=== PATIENT | female | born 1975 | race Caucasian/White ===

== ENCOUNTER 2020-08-03 14:33 | Inpatient (IN) | payer OTHER ==
[2020-08-03] MEDS ORDERED: SODIUM CHLORIDE 1,000 ML IV STA ×2 (15:45→18:49)
[2020-08-03] MEDS ORDERED: ONDANSETRON 4 MG/2 ML VIAL IVPUSH ONE (15:45)
[2020-08-03] MEDS ORDERED: FAMOTIDINE 20 MG/50 ML IVPB 20 MG/50 ML MG IVPB ONE ×2 (16:22→18:00)
[2020-08-03] MEDS ORDERED: ONDANSETRON 4 MG/2 ML VIAL ONE (18:00)
[2020-08-03 18:24] LABS: BASO % 0.8 % (0-2.0); EOS % 0.1 % (0-4.5); HEMOGLOBIN 10.2 GM/dL (10.7-15.3); MCH 32.5 pg (25.7-33.7); MCHC 31.9 g/dl (32.0-36.0); MEAN PLT VOLUME 10.5 fl (7.5-11.1); MONO % 5.3 % (3.8-10.2); NEUT % 82.8 % (42.8-82.8); PLATELET COUNT 198 K/MM3 (134-434); RBC 3.14 M/mm3 (3.60-5.2); RDW 14.8 % (11.6-15.6); WHITE BLOOD COUNT 17.8 K/mm3 (4.0-10.0)
[2020-08-03 18:30] LABS: EPI CELLS >36 /uL (0-25.1); HYALINE CASTS 9 /uL (0-3.1); PH,URINE 5.5 (5.0-8.0); URINE APPEARANCE CLOUDY; URINE BACTERIA >9,000 /uL (0-1359); URINE BILIRUBIN 2+ (NEGATIVE); URINE COLOR ORANGE; URINE GLUCOSE (UA) NEGATIVE (NEGATIVE); URINE KETONE TRACE (NEGATIVE); URINE LEUK ESTERASE 1+ (NEGATIVE); URINE NITRITE POSITIVE (NEGATIVE); URINE PROTEIN 2+ (NEGATIVE); URINE RBC 1747 /uL (0-23.9); URINE WBC 331 /uL (0-25.8)
[2020-08-03 18:32] LABS: POTASSIUM 3.6 mmol/L (3.5-5.1)
[2020-08-03 18:34] LABS: CALCIUM 8.6 mg/dL (8.5-10.1)
[2020-08-03 18:35] LABS: ALBUMIN 2.9 g/dl (3.4-5.0); BLOOD UREA NITROGEN 6.3 mg/dL (7-18)
[2020-08-03 18:38] LABS: CREATININE 0.7 mg/dL (0.55-1.3)
[2020-08-03 18:39] LABS: BILIRUBIN,TOTAL 2.6 mg/dL (0.2-1); TOT PROT 8.5 g/dl (6.4-8.2)
[2020-08-03] MEDS ORDERED: CEFTRIAXONE 1 GM in DEXTROSE 5%-WATER - 50 ML IVPB ONE (18:53)
[2020-08-03] MEDS ORDERED: CEFTRIAXONE 1 GM/50 ML BAG ONE (20:03)
[2020-08-03] MEDS ORDERED: FOLIC ACID 5 MG/1 ML SQ ONE (22:27)
[2020-08-03] MEDS ORDERED: LORazepam 1 MG TABLET PO PRN (22:29)
[2020-08-03 23:37] LABS: INR 1.77 (0.83-1.09); PROTHROMBIN TIME (PATIENT) 21.4 SEC (9.7-13.0)
[2020-08-03] MEDS ORDERED: LORazepam 1 MG TABLET ONE (23:46)
[2020-08-03] MEDS: LORazepam 2 MG TABLET PO SCH (23:52)
[2020-08-04] MEDS: ALBUMIN HUMAN 25% 100 ML VIAL IVPB SCH ×4 (01:12→18:42)
[2020-08-04] MEDS ORDERED: LORazepam 1 MG TABLET ONE ×2 (05:26→10:41)
[2020-08-04] MEDS: LORazepam 2 MG TABLET PO SCH ×3 (05:33→17:14)
[2020-08-04] MEDS ORDERED: PANTOPRAZOLE 40 MG TABLET ONE (08:03)
[2020-08-04] MEDS ORDERED: predniSONE 20 MG TABLET (UD) ONE (08:03)
[2020-08-04] MEDS ORDERED: CEFTRIAXONE 2 GM/100 ML BAG IVPB ONE (08:04)
[2020-08-04] MEDS ORDERED: ENOXAPARIN NA (PORCINE) 40 MG/0.4 ML DISP.SYRIN SQ ONE (08:04)
[2020-08-04 08:46] LABS: BASO % 2.3 % (0-2.0); EOS % 0.7 % (0-4.5); HEMATOCRIT 24.6 % (32.4-45.2); HEMOGLOBIN 8.2 GM/dL (10.7-15.3); LYMPH % 29.5 % (8-40); MCH 33.5 pg (25.7-33.7); MCHC 33.1 g/dl (32.0-36.0); MEAN CELL VOLUME 101.3 fl (80-96); MEAN PLT VOLUME 9.2 fl (7.5-11.1); MONO % 5.9 % (3.8-10.2); NEUT % 61.6 % (42.8-82.8); PLATELET COUNT 99 K/MM3 (134-434); RBC 2.43 M/mm3 (3.60-5.2); RDW 14.8 % (11.6-15.6); WHITE BLOOD COUNT 6.4 K/mm3 (4.0-10.0)
[2020-08-04] MEDS: PANTOPRAZOLE 40 MG TABLET PO SCH (09:01)
[2020-08-04] MEDS: predniSONE 20 MG TABLET (UD) PO SCH (09:01)
[2020-08-04] MEDS: CEFTRIAXONE 2 GM in DEXTROSE 5%-WATER 2 GM/100 ML BAG IVPB SCH (09:01)
[2020-08-04] MEDS: ENOXAPARIN NA (PORCINE) 40 MG/0.4 ML DISP.SYRIN SQ SCH (09:01)
[2020-08-04 09:06] LABS: POTASSIUM 3.2 mmol/L (3.5-5.1)
[2020-08-04 09:09] LABS: ALBUMIN 3.2 g/dl (3.4-5.0)
[2020-08-04 09:10] LABS: MAGNESIUM 1.5 mg/dL (1.8-2.4)
[2020-08-04 09:13] LABS: CREATININE 0.6 mg/dL (0.55-1.3); PHOSPHOROUS 2.4 mg/dL (2.5-4.9)
[2020-08-04 09:14] LABS: BILIRUBIN,TOTAL 2.2 mg/dL (0.2-1); TOT PROT 6.8 g/dl (6.4-8.2)
[2020-08-04] MEDS: NICOTINE 7 MG/24 HOURS TOPICAL PATCH TD SCH (10:33)
[2020-08-04] MEDS ORDERED: POTASSIUM CHLORIDE TABS 20 MEQ TABLET.ER (FP) PO ONE ×2 (10:45→11:27)
[2020-08-04] MEDS ORDERED: KCL 10 MEQ IVPB 10 MEQ/100 ML INFUS.BAG IVPB ONE (11:28)
[2020-08-04] MEDS: KCL 10 MEQ IVPB 10 MEQ/100 ML INFUS.BAG IVPB SCH ×3 (12:38→16:12)
[2020-08-04] MEDS ORDERED: FLU VACCINE (FLULAVAL) PF 60 MCG/0.5 ML SYRINGE 2020-2021 IM ONE (15:43)
[2020-08-04] MEDS: LORazepam 1 MG TABLET PO SCH ×2 (18:41→23:14)
[2020-08-05] MEDS: LORazepam 1 MG TABLET PO SCH ×2 (05:16→12:54)
[2020-08-05 07:27] LABS: MCH 33.4 pg (25.7-33.7); MCHC 33.3 g/dl (32.0-36.0); MEAN CELL VOLUME 100.4 fl (80-96); MEAN PLT VOLUME 9.6 fl (7.5-11.1); PLATELET COUNT 108 K/MM3 (134-434); RBC 2.39 M/mm3 (3.60-5.2); RDW 14.6 % (11.6-15.6); WHITE BLOOD COUNT 10.9 K/mm3 (4.0-10.0)
[2020-08-05 07:40] LABS: INR 1.84 (0.83-1.09); PROTHROMBIN TIME (PATIENT) 21.9 SEC (9.7-13.0)
[2020-08-05 07:54] LABS: POTASSIUM 3.4 mmol/L (3.5-5.1)
[2020-08-05 07:57] LABS: ALBUMIN 4.2 g/dl (3.4-5.0); BLOOD UREA NITROGEN 4.2 mg/dL (7-18)
[2020-08-05 07:59] LABS: BILIRUBIN,DIRECT 1.1 mg/dL (0.0-0.2)
[2020-08-05 08:00] LABS: CREATININE 0.6 mg/dL (0.55-1.3); PHOSPHOROUS 2.1 mg/dL (2.5-4.9)
[2020-08-05 08:01] LABS: BILIRUBIN,TOTAL 2.3 mg/dL (0.2-1); TOT PROT 7.3 g/dl (6.4-8.2)
[2020-08-05] MEDS ORDERED: DEXTROSE 5%-WATER 100 ML IVPB ONE (09:18)
[2020-08-05] MEDS: predniSONE 20 MG TABLET (UD) PO SCH (09:36)
[2020-08-05] MEDS: PANTOPRAZOLE 40 MG TABLET PO SCH (09:36)
[2020-08-05] MEDS: SPIRONOLACTONE 25 MG TABLET PO SCH (09:36)
[2020-08-05] MEDS: NICOTINE 7 MG/24 HOURS TOPICAL PATCH TD SCH (09:38)
[2020-08-05] MEDS: CEFTRIAXONE 2 GM in DEXTROSE 5%-WATER 2 GM/100 ML BAG IVPB SCH (09:38)
[2020-08-05] MEDS: ENOXAPARIN NA (PORCINE) 40 MG/0.4 ML DISP.SYRIN SQ SCH (09:38)
[2020-08-05] MEDS ORDERED: LORazepam 0.5 MG TABLET PO PRN (16:14)
[2020-08-05 17:59] VITALS: BMI 21.5
[2020-08-05 21:06] LABS: HEP B CORE AB, TOT Negative (Negative)
[2020-08-06] MEDS ORDERED: LORazepam 0.5 MG TABLET PO PRN
[2020-08-06] MEDS ORDERED: LORazepam 0.5 MG TABLET PO SCH (05:00)
[2020-08-06 08:08] LABS: INR 1.56 (0.83-1.09); PROTHROMBIN TIME (PATIENT) 18.9 SEC (9.7-13.0)
[2020-08-06 08:21] LABS: POTASSIUM 3.4 mmol/L (3.5-5.1)
[2020-08-06 08:22] LABS: BASO % 0.3 % (0-2.0); EOS % 0.1 % (0-4.5); HEMOGLOBIN 8.8 GM/dL (10.7-15.3); LYMPH % 15.3 % (8-40); MCH 33.1 pg (25.7-33.7); MCHC 32.8 g/dl (32.0-36.0); MEAN CELL VOLUME 100.8 fl (80-96); MEAN PLT VOLUME 10.2 fl (7.5-11.1); MONO % 4.8 % (3.8-10.2); NEUT % 79.5 % (42.8-82.8); PLATELET COUNT 79 K/MM3 (134-434); RBC 2.68 M/mm3 (3.60-5.2); RDW 14.7 % (11.6-15.6); WHITE BLOOD COUNT 14.4 K/mm3 (4.0-10.0)
[2020-08-06] MEDS ORDERED: POTASSIUM CHLORIDE TABS 20 MEQ TABLET.ER (FP) PO ONE (08:27)
[2020-08-06 08:30] LABS: ALBUMIN 4.1 g/dl (3.4-5.0); CALCIUM 9.2 mg/dL (8.5-10.1)
[2020-08-06 08:31] LABS: MAGNESIUM 1.6 mg/dL (1.8-2.4)
[2020-08-06 08:34] LABS: PHOSPHOROUS 2.6 mg/dL (2.5-4.9)
[2020-08-06 08:35] LABS: BILIRUBIN,TOTAL 1.9 mg/dL (0.2-1); CREATININE 0.6 mg/dL (0.55-1.3); TOT PROT 7.7 g/dl (6.4-8.2)
[2020-08-06] MEDS ORDERED: DEXTROSE 5%-WATER 100 ML IVPB ONE (09:26)
[2020-08-06] MEDS: PANTOPRAZOLE 40 MG TABLET PO SCH (12:05)
[2020-08-06] MEDS: SPIRONOLACTONE 25 MG TABLET PO SCH (12:05)
[2020-08-06] MEDS: predniSONE 20 MG TABLET (UD) PO SCH (12:06)
[2020-08-06] MEDS: CEFTRIAXONE 2 GM in DEXTROSE 5%-WATER 2 GM/100 ML BAG IVPB SCH (12:06)
[2020-08-06] MEDS: NICOTINE 7 MG/24 HOURS TOPICAL PATCH TD SCH (12:06)
[2020-08-06] MEDS ORDERED: MAGNESIUM SULF 50% (8.12 MEQ/2 ML-1 GM VIAL) IVPB ONE (12:33)
[2020-08-06 19:41] LABS: BF WBC & OTHER NUCLEATED CELLS 326 /mm3
[2020-08-07] MEDS ORDERED: LORazepam 0.5 MG TABLET PO ONE (05:00)
[2020-08-07] MEDS: LEVOTHYROXINE NA 75 MCG TABLET (FP) PO SCH (06:06)
[2020-08-07 07:52] LABS: BASO % 0.1 % (0-2.0); HEMATOCRIT 26.4 % (32.4-45.2); HEMOGLOBIN 8.7 GM/dL (10.7-15.3); LYMPH % 13.1 % (8-40); MCHC 33.1 g/dl (32.0-36.0); MEAN CELL VOLUME 99.9 fl (80-96); MEAN PLT VOLUME 9.9 fl (7.5-11.1); MONO % 4.9 % (3.8-10.2); NEUT % 81.9 % (42.8-82.8); PLATELET COUNT 119 K/MM3 (134-434); RBC 2.64 M/mm3 (3.60-5.2); RDW 14.5 % (11.6-15.6); WHITE BLOOD COUNT 11.1 K/mm3 (4.0-10.0)
[2020-08-07 07:56] LABS: INR 1.65 (0.83-1.09); PROTHROMBIN TIME (PATIENT) 19.7 SEC (9.7-13.0)
[2020-08-07 08:06] LABS: POTASSIUM 3.9 mmol/L (3.5-5.1)
[2020-08-07 08:19] LABS: ALBUMIN 3.6 g/dl (3.4-5.0); BLOOD UREA NITROGEN 7.8 mg/dL (7-18); CALCIUM 8.6 mg/dL (8.5-10.1); MAGNESIUM 1.8 mg/dL (1.8-2.4)
[2020-08-07 08:20] LABS: BILIRUBIN,TOTAL 1.4 mg/dL (0.2-1); TOT PROT 7.1 g/dl (6.4-8.2)
[2020-08-07 08:21] LABS: CREATININE 0.7 mg/dL (0.55-1.3)
[2020-08-07 08:22] LABS: PHOSPHOROUS 2.5 mg/dL (2.5-4.9)
[2020-08-07] MEDS ORDERED: DEXTROSE 5%-WATER 100 ML IVPB ONE (09:33)
[2020-08-07] MEDS: CEFTRIAXONE 2 GM in DEXTROSE 5%-WATER 2 GM/100 ML BAG IVPB SCH (09:52)
[2020-08-07] MEDS: NICOTINE 7 MG/24 HOURS TOPICAL PATCH TD SCH (09:53)
[2020-08-07] MEDS: SPIRONOLACTONE 25 MG TABLET PO SCH (09:53)
[2020-08-07] MEDS ORDERED: ONDANSETRON 4 MG/2 ML VIAL IVPUSH PRN (10:08)
[2020-08-07 10:54] LABS: BODY FLUID MACROPHAGES 80 %
[2020-08-07] MEDS: FUROSEMIDE 20 MG TABLET (FP) PO SCH (18:46)
[2020-08-08] MEDS ORDERED: ASPIRIN 81 MG CHEWABLE TABLETS PO ONE (00:15)
[2020-08-08] MEDS: LEVOTHYROXINE NA 75 MCG TABLET (FP) PO SCH (06:10)
[2020-08-08 08:20] LABS: BASO % 0.8 % (0-2.0); EOS % 2.6 % (0-4.5); HEMATOCRIT 25.3 % (32.4-45.2); HEMOGLOBIN 8.5 GM/dL (10.7-15.3); LYMPH % 24.2 % (8-40); MCH 33.4 pg (25.7-33.7); MCHC 33.7 g/dl (32.0-36.0); MEAN CELL VOLUME 99.1 fl (80-96); MEAN PLT VOLUME 10.1 fl (7.5-11.1); MONO % 6.2 % (3.8-10.2); NEUT % 66.2 % (42.8-82.8); PLATELET COUNT 96 K/MM3 (134-434); RBC 2.55 M/mm3 (3.60-5.2); RDW 14.6 % (11.6-15.6); WHITE BLOOD COUNT 7.6 K/mm3 (4.0-10.0)
[2020-08-08 08:28] LABS: POTASSIUM 3.2 mmol/L (3.5-5.1)
[2020-08-08 08:43] LABS: CALCIUM 8.1 mg/dL (8.5-10.1)
[2020-08-08 08:44] LABS: ALBUMIN 3.4 g/dl (3.4-5.0); BLOOD UREA NITROGEN 6.3 mg/dL (7-18); MAGNESIUM 1.3 mg/dL (1.8-2.4)
[2020-08-08 08:47] LABS: CREATININE 0.7 mg/dL (0.55-1.3); PHOSPHOROUS 2.5 mg/dL (2.5-4.9)
[2020-08-08 08:48] LABS: BILIRUBIN,TOTAL 1.4 mg/dL (0.2-1); TOT PROT 6.7 g/dl (6.4-8.2)
[2020-08-08] MEDS ORDERED: DEXTROSE 5%-WATER 100 ML IVPB ONE (10:14)
[2020-08-08] MEDS: CEFTRIAXONE 2 GM in DEXTROSE 5%-WATER 2 GM/100 ML BAG IVPB SCH (10:24)
[2020-08-08] MEDS: NICOTINE 7 MG/24 HOURS TOPICAL PATCH TD SCH (10:24)
[2020-08-08] MEDS: SPIRONOLACTONE 25 MG TABLET PO SCH (10:24)
[2020-08-08] MEDS: FUROSEMIDE 20 MG TABLET (FP) PO SCH (10:24)
[2020-08-08 12:08] LABS: BODY FLUID ALBUMIN 1.1 g/dL (Not Estab.)
[2020-08-08] MEDS ORDERED: POTASSIUM CHLORIDE TABS 20 MEQ TABLET.ER (FP) PO ONE (15:02)
[2020-08-08] MEDS ORDERED: MAGNESIUM SULF 50% (8.12 MEQ/2 ML-1 GM VIAL) IVPB ONE (15:03)
[2020-08-08 15:37] VITALS: BP 95/69; PULSE 103; TEMP 98.2
== END 2020-08-08 18:40 | disposition home or self-care (01) | DRG 264 ==
LOC: JER 14:33 → JERBED 19:35 → J7W 08-04 15:11
PROVIDERS: ADMIT Internal Medicine; ATTEND Internal Medicine
PROC: 0W9G3ZX Drainage of Peritoneal Cavity, Percutaneous Approach, Diagnostic (ICD-10-PCS; principal; 2020-08-06)
DX: K70.31 Alcoholic cirrhosis of liver with ascites (principal); D69.6 Thrombocytopenia, unspecified; E83.42 Hypomagnesemia; E88.09 Other disorders of plasma-protein metabolism, not elsewhere classified; E83.39 Other disorders of phosphorus metabolism; K72.90 Hepatic failure, unspecified without coma; E87.6 Hypokalemia; N39.0 Urinary tract infection, site not specified; D64.9 Anemia, unspecified; F10.10 Alcohol abuse, uncomplicated; F17.210 Nicotine dependence, cigarettes, uncomplicated; B96.20 Unspecified Escherichia coli [E. coli] as the cause of diseases classified elsewhere; E03.9 Hypothyroidism, unspecified
CPT/HCPCS: 36415; 71045-TC-FY; 74183-TC; 76700-TC; 76942-TC; 80053; 81003; 82042; 82105; 82150; 82248; 82465; 82945; 83615; 83690; 83735; 83986; 84100; 84157; 84443; 84478; 85025; 85027; 85610; 86704; 86706; 86707; 86708; 86709; 87040; 87070; 87075; 87086; 87102; 87116; 87186; 87205; 87206; 87210; 87340; 87522; 88108; 88305-TC; 93005; 93010; 99285-25; A9579; C9803; G0008; Q2036; U0003

== ENCOUNTER 2021-03-22 21:44 | Emergency (ER) | payer OTHER ==
[2021-03-22 22:05] VITALS: BP 92/48; PULSE 114; TEMP 99.1; BMI 19.3
[2021-03-22] MEDS ORDERED: PANTOPRAZOLE SODIUM 40 MG VIAL IVPUSH ONE (22:11)
[2021-03-22] MEDS ORDERED: SODIUM CHLORIDE 1,000 ML IV STA ×2 (22:11→23:35)
[2021-03-22] MEDS ORDERED: ONDANSETRON 4 MG/2 ML VIAL IVPUSH ONE (22:14)
[2021-03-22] MEDS ORDERED: OCTREOTIDE ACETATE 200 MCG, OCTREOTIDE ACETATE 1,000 MCG in DEXTROSE 5%-WATER - 496 ML IVPB SCH (22:15)
[2021-03-22] MEDS ORDERED: PANTOPRAZOLE SODIUM 80 MG in SODIUM CHLORIDE 100 ML IVPB SCH (22:15)
[2021-03-22] MEDS ORDERED: ONDANSETRON 4 MG/2 ML VIAL ONE (22:17)
[2021-03-22] MEDS ORDERED: PANTOPRAZOLE SODIUM 40 MG VIAL ONE (22:18)
[2021-03-22 23:17] LABS: BLOOD UREA NITROGEN 47.3 mg/dL (7-18); CALCIUM 7.2 mg/dL (8.5-10.1); CREATININE 1.3 mg/dL (0.55-1.3)
[2021-03-22 23:17] LABS: BASO % 0.2 % (0-2.0); HEMATOCRIT 15.9 % (32.4-45.2); INR 1.78 (0.83-1.09); LYMPH % 8.6 % (8-40); MCH 31.6 pg (25.7-33.7); MCHC 32.6 g/dl (32.0-36.0); MEAN CELL VOLUME 96.8 fl (80-96); MEAN PLT VOLUME 9.2 fl (7.5-11.1); NEUT % 86.2 % (42.8-82.8); PLATELET COUNT 145 10^3/uL (134-434); PROTHROMBIN TIME (PATIENT) 21.5 SEC (9.7-13.0); RBC 1.64 M/mm3 (3.60-5.2); RDW 14.2 % (11.6-15.6); WHITE BLOOD COUNT 24.4 K/mm3 (4.0-10.0)
[2021-03-22 23:18] LABS: BILIRUBIN,TOTAL 1.4 mg/dL (0.2-1); TOT PROT 5.3 g/dl (6.4-8.2)
[2021-03-22 23:26] LABS: HEMOGLOBIN 5.2 GM/dL (10.7-15.3)
[2021-03-22] MEDS ORDERED: PIPERACILLIN/TAZOB 3.375 GM 3.375 GM in DEXTROSE 5%-WATER - 50 ML IVPB ONE (23:38)
[2021-03-23] MEDS ORDERED: RAPID SEQUENCE INTUBATION KIT NR ONE (00:39)
[2021-03-23] MEDS ORDERED: SUCCINYLCHOLINE CHLORIDE 200 MG/10 ML VIAL IVPUSH ONE (00:49)
[2021-03-23] MEDS ORDERED: ETOMIDATE 20 MG/10 ML AMPUL IVPUSH ONE (00:49)
[2021-03-23] MEDS ORDERED: FENTANYL IVPB 500 MCG/100 ML BAG IVPB SCH (00:52)
[2021-03-23] MEDS ORDERED: MIDAZOLAM HCL 5 MG/1 ML Single Dose Vial IVPUSH ONE (01:01)
[2021-03-23] MEDS ORDERED: MIDAZOLAM HCL 2 MG/2 ML SINGLE DOSE VIAL ONE (01:03)
[2021-03-23] MEDS ORDERED: MIDAZOLAM IN 0.9 % SOD.CHLORID 100 MG/100 ML PLAST..BAG IVPB SCH ×2 (01:15→01:31)
[2021-03-23] MEDS ORDERED: ROCURONIUM BROMIDE 50 MG/5 ML VIAL IV ONE ×2 (01:19→02:41)
[2021-03-23] MEDS ORDERED: MIDAZOLAM IN 0.9 % SOD.CHLORID 1 MG/1 ML PLAST..BAG ONE (01:22)
[2021-03-23] MEDS ORDERED: ROCURONIUM BROMIDE 100 MG/10 ML VIAL ONE (02:39)
[2021-03-23 02:54] LABS: ANISOCYTOSIS 1+; MACROCYTOSIS 1+; OVALOCYTE 1+; PLATELET ESTIMATE DECREASED
== END 2021-03-23 03:00 | disposition short-term general hospital (02) ==
LOC: JER 21:44
PROC: 3E033GC Introduction of Other Therapeutic Substance into Peripheral Vein, Percutaneous Approach (ICD-10-PCS; principal; 2021-03-22)
DX: I85.01 Esophageal varices with bleeding (principal); K70.30 Alcoholic cirrhosis of liver without ascites; F10.10 Alcohol abuse, uncomplicated
CPT/HCPCS: 36415; 36430; 36511; 71045-TC-FY; 80053; 82140; 83605; 83690; 84703; 85025; 85610; 86900; 86922; 93005; 93010; 99291; 99292; C9803; P9016; P9058; U0003; U0005

== ENCOUNTER 2022-01-25 08:09 | Emergency (ER) | payer OTHER ==
[2022-01-25 08:23] VITALS: BP 124/71; PULSE 82; TEMP 98.6; BMI 21.7
[2022-01-25] MEDS ORDERED: ACETAMINOPHEN 500 MG TABLET (FP) ONE (09:00)
[2022-01-25] MEDS ORDERED: ACETAMINOPHEN 500 MG TABLET (FP) PO ONE (09:00)
== END 2022-01-25 09:09 | disposition home or self-care (01) ==
LOC: JERFT 08:09
DX: T16.1XXA Foreign body in right ear, initial encounter (principal)
CPT/HCPCS: 99283-25

== ENCOUNTER 2022-03-02 19:33 | Inpatient (IN) | payer OTHER ==
[2022-03-02] MEDS ORDERED: FOLIC ACID 1 MG TABLET (FP) PO ONE (20:48)
[2022-03-02] MEDS ORDERED: SODIUM CHLORIDE 0.9% 500 ML INFUS.BAG IV ONE ×2 (20:48→22:46)
[2022-03-02] MEDS ORDERED: THIAMINE HCL 100 MG TABLET (FP) PO ONE (20:48)
[2022-03-02] MEDS ORDERED: FOLIC ACID 1 MG TABLET (FP) ONE (21:31)
[2022-03-02] MEDS ORDERED: THIAMINE HCL 100 MG TABLET (FP) ONE (21:31)
[2022-03-02 21:46] LABS: BASO % 1.3 % (0-2.0); EOS % 1.5 % (0-4.5); HEMOGLOBIN 11.4 GM/dL (10.7-15.3); LYMPH % 22.6 % (8-40); MCH 30.7 pg (25.7-33.7); MCHC 33.6 g/dl (32.0-36.0); MEAN CELL VOLUME 91.5 fl (80-96); MEAN PLT VOLUME 9.1 fl (7.5-11.1); MONO % 15.4 % (3.8-10.2); NEUT % 59.2 % (42.8-82.8); PLATELET COUNT 121 10^3/uL (134-434); RBC 3.72 M/mm3 (3.60-5.2); RDW 14.3 % (11.6-15.6); WHITE BLOOD COUNT 10.7 K/mm3 (4.0-10.0)
[2022-03-02 21:54] LABS: INR 1.36 (0.83-1.09); PROTHROMBIN TIME (PATIENT) 15.7 SEC (9.7-13.0)
[2022-03-02 22:03] LABS: CALCIUM 8.6 mg/dL (8.5-10.1)
[2022-03-02 22:04] LABS: ALBUMIN 3.7 g/dl (3.4-5.0); BLOOD UREA NITROGEN 24.5 mg/dL (7-18)
[2022-03-02 22:06] LABS: BILIRUBIN,DIRECT 1.5 mg/dL (0.0-0.2)
[2022-03-02 22:07] LABS: CREATININE 1.9 mg/dL (0.55-1.3)
[2022-03-02 22:08] LABS: BILIRUBIN,TOTAL 2.7 mg/dL (0.2-1); TOT PROT 8.3 g/dl (6.4-8.2)
[2022-03-02] MEDS ORDERED: POTASSIUM CHLORIDE ORAL LIQUID 20 MEQ/15 ML PO ONE (22:47)
[2022-03-02 22:49] LABS: URINE APPEARANCE CLEAR; URINE BILIRUBIN NEGATIVE (NEGATIVE); URINE COLOR YELLOW; URINE GLUCOSE (UA) NEGATIVE (NEGATIVE); URINE KETONE NEGATIVE (NEGATIVE); URINE LEUK ESTERASE NEGATIVE (NEGATIVE); URINE NITRITE NEGATIVE (NEGATIVE); URINE PROTEIN NEGATIVE (NEGATIVE); URINE UROBILINOGEN 0.2 mg/dL (0.2-1.0)
[2022-03-02 22:50] LABS: URINE BARBITURATES NEGATIVE (NEGATIVE)
[2022-03-02 22:51] LABS: COCAINE, UR NEGATIVE (NEGATIVE); METHADONE, UR NEGATIVE (NEGATIVE); PHENCYCLIDINE,URINE NEGATIVE (NEGATIVE); URINE AMPHETAMINES NEGATIVE (NEGATIVE); URINE BENZODIAZEPINES NEGATIVE (NEGATIVE)
[2022-03-02 22:52] LABS: OPIATES, URI NEGATIVE (NEGATIVE)
[2022-03-02] MEDS ORDERED: KCL 10 MEQ IVPB 10 MEQ/100 ML INFUS.BAG IVPB SCH (23:00)
[2022-03-02] MEDS ORDERED: KCL 10 MEQ IVPB 10 MEQ/100 ML INFUS.BAG IVPB ONE (23:51)
[2022-03-02] MEDS ORDERED: POTASSIUM CHLORIDE ORAL LIQUID 20 MEQ/15 ML ONE (23:51)
[2022-03-03] MEDS ORDERED: chlordiazePOXIDE HCL 25 MG CAPSULE PO ONE (01:02)
[2022-03-03] MEDS ORDERED: chlordiazePOXIDE HCL 25 MG CAPSULE ONE (04:14)
[2022-03-03] MEDS ORDERED: HALOPERIDOL LACTATE 5 MG/ML IM ONE (04:48)
[2022-03-03] MEDS ORDERED: LORazepam 2 MG/ML SDV VIAL IVPUSH PRN (04:50)
[2022-03-03] MEDS ORDERED: HALOPERIDOL LACTATE 5 MG/ML ONE (04:55)
[2022-03-03] MEDS ORDERED: HEPARIN NA (PORCINE) 5,000 UNITS/ML 1ML VIAL ONE (05:02)
[2022-03-03] MEDS: HEPARIN NA (PORCINE) 5,000 UNITS/ML 1ML VIAL SQ SCH ×3 (05:03→22:17)
[2022-03-03 05:54] LABS: ALBUMIN 3.4 g/dl (3.4-5.0); BLOOD UREA NITROGEN 21.3 mg/dL (7-18)
[2022-03-03 05:57] LABS: CREATININE 1.6 mg/dL (0.55-1.3)
[2022-03-03 05:59] LABS: BILIRUBIN,TOTAL 2.5 mg/dL (0.2-1); TOT PROT 7.5 g/dl (6.4-8.2)
[2022-03-03 08:30] VITALS: BMI 20.5
[2022-03-03] MEDS ORDERED: THIAMINE HCL 100 MG TABLET (FP) PO SCH (10:00)
[2022-03-03] MEDS ORDERED: FOLIC ACID 1 MG TABLET (FP) PO SCH (10:00)
[2022-03-03 10:18] LABS: HEMATOCRIT 29.1 % (32.4-45.2); HEMOGLOBIN 9.6 GM/dL (10.7-15.3); MCH 30.6 pg (25.7-33.7); MCHC 33.1 g/dl (32.0-36.0); MEAN CELL VOLUME 92.6 fl (80-96); MEAN PLT VOLUME 9.1 fl (7.5-11.1); PLATELET COUNT 84 10^3/uL (134-434); RBC 3.14 M/mm3 (3.60-5.2); RDW 14.5 % (11.6-15.6)
[2022-03-03] MEDS ORDERED: LORazepam 1 MG TABLET PO PRN (10:24)
[2022-03-03 10:39] LABS: CHLORIDE 100 mmol/L (98-107); SODIUM 136 mmol/L (136-145)
[2022-03-03 10:43] LABS: MAGNESIUM 1.1 mg/dL (1.8-2.4)
[2022-03-03 10:46] LABS: CREATININE 1.5 mg/dL (0.55-1.3); SGPT/ALT 34 U/L (13-61)
[2022-03-03 10:47] LABS: SGOT/AST 106 U/L (15-37)
[2022-03-03 10:48] LABS: TOT PROT 6.9 g/dl (6.4-8.2)
[2022-03-03 10:54] LABS: ALBUMIN 3.1 g/dl (3.4-5.0); ALK PHOS 77 U/L (45-117); ANION GAP 9 MMOL/L (8-16); BILIRUBIN,TOTAL 3.2 mg/dL (0.2-1); BLOOD UREA NITROGEN 19.5 mg/dL (7-18); CO2 27 mmol/L (21-32); GLUCOSE,RANDOM 88 mg/dL (74-106); PHOSPHOROUS 2.1 mg/dL (2.5-4.9)
[2022-03-03] MEDS ORDERED: POTASSIUM CHLORIDE TABS 20 MEQ TABLET.ER (FP) PO ONE (11:15)
[2022-03-03] MEDS ORDERED: MAGNESIUM 2GM/50ML STERILE WATER IVPB IVPB ONE ×2 (11:30→20:00)
[2022-03-03] MEDS: LORazepam 1 MG TABLET PO SCH ×3 (11:30→23:30)
[2022-03-03] MEDS ORDERED: SODIUM CHLORIDE 1,000 ML IV SCH (11:45)
[2022-03-03] MEDS: KCL 10 MEQ IVPB 10 MEQ/100 ML INFUS.BAG IVPB SCH ×3 (12:40→17:08)
[2022-03-03] MEDS ORDERED: LACTULOSE 20 GM/30 ML UDC (FOR ORAL USE ONLY) PO SCH ×2 (14:00→22:00)
[2022-03-03] MEDS ORDERED: POTASSIUM PHOSPHATE 30 MM in SODIUM CHLORIDE 500 ML IVPB ONE (14:30)
[2022-03-03] MEDS ORDERED: POTASSIUM CHLORIDE 40 MEQ in SODIUM CHLORIDE 1,000 ML IV SCH (15:00)
[2022-03-03 15:15] LABS: IRON SERUM 84 ug/dL (50-175); TOTAL IRON BINDING CAPACITY 220 ug/dL (250-450)
[2022-03-03 15:24] LABS: RETICULOCYTES 2.59 % (0.5-1.5)
[2022-03-03 16:11] LABS: LDH 238 U/L (84-246)
[2022-03-03] MEDS ORDERED: KCL 10 MEQ IVPB 10 MEQ/100 ML INFUS.BAG IVPB SCH (17:00)
[2022-03-03] MEDS ORDERED: risperiDONE 1 MG TABLET PO SCH (22:00)
[2022-03-04] MEDS: HEPARIN NA (PORCINE) 5,000 UNITS/ML 1ML VIAL SQ SCH ×3 (05:50→22:00)
[2022-03-04] MEDS: LORazepam 1 MG TABLET PO SCH ×4 (05:50→22:01)
[2022-03-04 07:57] LABS: BASO % 1.7 % (0-2.0); EOS % 2.8 % (0-4.5); HEMATOCRIT 30.3 % (32.4-45.2); HEMOGLOBIN 9.9 GM/dL (10.7-15.3); LYMPH % 27.9 % (8-40); MCH 30.9 pg (25.7-33.7); MCHC 32.5 g/dl (32.0-36.0); MEAN PLT VOLUME 9.6 fl (7.5-11.1); MONO % 13.9 % (3.8-10.2); NEUT % 53.7 % (42.8-82.8); PLATELET COUNT 89 10^3/uL (134-434); RBC 3.19 M/mm3 (3.60-5.2); RDW 14.9 % (11.6-15.6); WHITE BLOOD COUNT 5.2 K/mm3 (4.0-10.0)
[2022-03-04] MEDS ORDERED: LORazepam 2 MG/ML SDV VIAL IVPUSH PRN (08:01)
[2022-03-04] MEDS ORDERED: LORazepam 1 MG TABLET PO PRN (08:01)
[2022-03-04 08:14] LABS: CALCIUM 7.9 mg/dL (8.5-10.1)
[2022-03-04 08:15] LABS: BLOOD UREA NITROGEN 13.1 mg/dL (7-18); MAGNESIUM 2.4 mg/dL (1.8-2.4)
[2022-03-04 08:17] LABS: BILIRUBIN,DIRECT 1.2 mg/dL (0.0-0.2)
[2022-03-04 08:18] LABS: CREATININE 1.1 mg/dL (0.55-1.3); PHOSPHOROUS 2.5 mg/dL (2.5-4.9)
[2022-03-04 08:20] LABS: TOT PROT 6.7 g/dl (6.4-8.2)
[2022-03-04 09:02] LABS: INR 1.28 (0.83-1.09); PROTHROMBIN TIME (PATIENT) 14.8 SEC (9.7-13.0)
[2022-03-04] MEDS: FOLIC ACID 1 MG TABLET (FP) PO SCH (09:28)
[2022-03-04] MEDS: LACTULOSE 20 GM/30 ML UDC (FOR ORAL USE ONLY) PO SCH ×2 (09:28→22:00)
[2022-03-04] MEDS: THIAMINE HCL 100 MG TABLET (FP) PO SCH (09:28)
[2022-03-04] MEDS: risperiDONE 1 MG TABLET PO SCH ×2 (09:28→22:00)
[2022-03-04] MEDS ORDERED: SODIUM CHLORIDE 0.45% 1,000 ML IV SCH (15:00)
[2022-03-04] MEDS ORDERED: POTASSIUM CHLORIDE 40 MEQ in SODIUM CHLORIDE 1,000 ML IV SCH (17:00)
[2022-03-05] MEDS ORDERED: LORazepam 0.5 MG TABLET PO PRN ×2
[2022-03-05] MEDS ORDERED: LORazepam 1 MG TABLET PO SCH (05:00)
[2022-03-05] MEDS: LORazepam 1 MG TABLET PO SCH ×5 (05:51→22:30)
[2022-03-05] MEDS: HEPARIN NA (PORCINE) 5,000 UNITS/ML 1ML VIAL SQ SCH ×3 (05:52→22:30)
[2022-03-05 08:22] LABS: BASO % 1.6 % (0-2.0); EOS % 2.9 % (0-4.5); HEMATOCRIT 27.7 % (32.4-45.2); HEMOGLOBIN 9.1 GM/dL (10.7-15.3); MCH 31.2 pg (25.7-33.7); MEAN CELL VOLUME 94.4 fl (80-96); MEAN PLT VOLUME 9.4 fl (7.5-11.1); MONO % 12.2 % (3.8-10.2); NEUT % 54.3 % (42.8-82.8); PLATELET COUNT 94 10^3/uL (134-434); RBC 2.94 M/mm3 (3.60-5.2); RDW 14.8 % (11.6-15.6)
[2022-03-05 08:48] LABS: CALCIUM 7.8 mg/dL (8.5-10.1)
[2022-03-05 08:49] LABS: ALBUMIN 2.5 g/dl (3.4-5.0); BLOOD UREA NITROGEN 8.4 mg/dL (7-18)
[2022-03-05 08:54] LABS: BILIRUBIN,TOTAL 1.3 mg/dL (0.2-1); TOT PROT 6.1 g/dl (6.4-8.2)
[2022-03-05] MEDS: NADOLOL 20 MG TABLET (FP) PO SCH (10:03)
[2022-03-05] MEDS: SPIRONOLACTONE 25 MG TABLET PO SCH (10:03)
[2022-03-05] MEDS: FUROSEMIDE 20 MG TABLET (FP) PO SCH (10:03)
[2022-03-05] MEDS: THIAMINE HCL 100 MG TABLET (FP) PO SCH (10:05)
[2022-03-05] MEDS: FOLIC ACID 1 MG TABLET (FP) PO SCH (10:05)
[2022-03-05] MEDS: LACTULOSE 20 GM/30 ML UDC (FOR ORAL USE ONLY) PO SCH ×2 (10:06→22:34)
[2022-03-05] MEDS: risperiDONE 1 MG TABLET PO SCH ×2 (10:06→22:32)
[2022-03-06] MEDS ORDERED: LORazepam 0.5 MG TABLET PO SCH (05:00)
[2022-03-06] MEDS: LORazepam 0.5 MG TABLET PO SCH ×4 (05:03→22:12)
[2022-03-06] MEDS: HEPARIN NA (PORCINE) 5,000 UNITS/ML 1ML VIAL SQ SCH (05:03)
[2022-03-06 07:01] LABS: BASO % 2.5 % (0-2.0); EOS % 3.1 % (0-4.5); LYMPH % 23.6 % (8-40); MCH 30.3 pg (25.7-33.7); MCHC 32.3 g/dl (32.0-36.0); MEAN CELL VOLUME 93.6 fl (80-96); MEAN PLT VOLUME 9.1 fl (7.5-11.1); MONO % 10.8 % (3.8-10.2); PLATELET COUNT 92 10^3/uL (134-434); RBC 2.99 M/mm3 (3.60-5.2); RDW 14.6 % (11.6-15.6); WHITE BLOOD COUNT 5.4 K/mm3 (4.0-10.0)
[2022-03-06 07:28] LABS: CALCIUM 8.3 mg/dL (8.5-10.1)
[2022-03-06 07:29] LABS: ALBUMIN 2.6 g/dl (3.4-5.0); BLOOD UREA NITROGEN 3.8 mg/dL (7-18)
[2022-03-06 07:32] LABS: CREATININE 0.9 mg/dL (0.55-1.3)
[2022-03-06 07:33] LABS: BILIRUBIN,TOTAL 1.6 mg/dL (0.2-1); TOT PROT 6.2 g/dl (6.4-8.2)
[2022-03-06] MEDS: SPIRONOLACTONE 25 MG TABLET PO SCH (09:51)
[2022-03-06] MEDS: risperiDONE 1 MG TABLET PO SCH ×2 (09:51→21:52)
[2022-03-06] MEDS: LACTULOSE 20 GM/30 ML UDC (FOR ORAL USE ONLY) PO SCH ×2 (09:51→21:52)
[2022-03-06] MEDS: THIAMINE HCL 100 MG TABLET (FP) PO SCH (09:51)
[2022-03-06] MEDS: FUROSEMIDE 20 MG TABLET (FP) PO SCH (09:51)
[2022-03-06] MEDS: NADOLOL 20 MG TABLET (FP) PO SCH (09:51)
[2022-03-06] MEDS: FOLIC ACID 1 MG TABLET (FP) PO SCH (09:51)
[2022-03-07] MEDS ORDERED: LORazepam 0.5 MG TABLET PO ONE ×2 (05:00)
[2022-03-07 08:14] LABS: BASO % 1.7 % (0-2.0); EOS % 2.7 % (0-4.5); HEMATOCRIT 29.9 % (32.4-45.2); HEMOGLOBIN 9.9 GM/dL (10.7-15.3); LYMPH % 20.5 % (8-40); MCH 30.7 pg (25.7-33.7); MEAN PLT VOLUME 9.3 fl (7.5-11.1); MONO % 8.1 % (3.8-10.2); PLATELET COUNT 105 10^3/uL (134-434); RBC 3.22 M/mm3 (3.60-5.2); RDW 14.6 % (11.6-15.6); WHITE BLOOD COUNT 6.5 K/mm3 (4.0-10.0)
[2022-03-07 08:48] LABS: CALCIUM 8.5 mg/dL (8.5-10.1)
[2022-03-07 08:49] LABS: ALBUMIN 2.7 g/dl (3.4-5.0); BLOOD UREA NITROGEN 3.2 mg/dL (7-18); MAGNESIUM 1.2 mg/dL (1.8-2.4)
[2022-03-07 08:53] LABS: CREATININE 0.9 mg/dL (0.55-1.3)
[2022-03-07 08:54] LABS: BILIRUBIN,TOTAL 1.7 mg/dL (0.2-1); TOT PROT 6.4 g/dl (6.4-8.2)
[2022-03-07] MEDS: NADOLOL 20 MG TABLET (FP) PO SCH (09:46)
[2022-03-07] MEDS: LACTULOSE 20 GM/30 ML UDC (FOR ORAL USE ONLY) PO SCH ×2 (09:46→21:00)
[2022-03-07] MEDS: FOLIC ACID 1 MG TABLET (FP) PO SCH (09:46)
[2022-03-07] MEDS: risperiDONE 1 MG TABLET PO SCH ×2 (09:47→21:00)
[2022-03-07] MEDS: THIAMINE HCL 100 MG TABLET (FP) PO SCH (09:47)
[2022-03-07] MEDS: FUROSEMIDE 20 MG TABLET (FP) PO SCH (09:47)
[2022-03-07] MEDS: SPIRONOLACTONE 25 MG TABLET PO SCH (09:48)
[2022-03-07] MEDS ORDERED: MAGNESIUM 2GM/50ML STERILE WATER IVPB IVPB ONE (11:32)
[2022-03-08] MEDS: FUROSEMIDE 20 MG TABLET (FP) PO SCH (10:04)
[2022-03-08] MEDS: LACTULOSE 20 GM/30 ML UDC (FOR ORAL USE ONLY) PO SCH ×2 (10:04→21:06)
[2022-03-08] MEDS: SPIRONOLACTONE 25 MG TABLET PO SCH (10:04)
[2022-03-08] MEDS: FOLIC ACID 1 MG TABLET (FP) PO SCH (10:05)
[2022-03-08] MEDS: NADOLOL 20 MG TABLET (FP) PO SCH (10:05)
[2022-03-08] MEDS: risperiDONE 1 MG TABLET PO SCH ×2 (10:06→21:07)
[2022-03-08] MEDS: THIAMINE HCL 100 MG TABLET (FP) PO SCH (10:06)
[2022-03-08 11:19] LABS: HEMATOCRIT 32.6 % (32.4-45.2); HEMOGLOBIN 10.8 GM/dL (10.7-15.3); MCH 30.9 pg (25.7-33.7); MCHC 33.1 g/dl (32.0-36.0); MEAN CELL VOLUME 93.2 fl (80-96); MEAN PLT VOLUME 9.7 fl (7.5-11.1); PLATELET COUNT 123 10^3/uL (134-434); RDW 14.7 % (11.6-15.6); WHITE BLOOD COUNT 9.4 K/mm3 (4.0-10.0)
[2022-03-08 11:56] LABS: BLOOD UREA NITROGEN 7.1 mg/dL (7-18); MAGNESIUM 1.4 mg/dL (1.8-2.4)
[2022-03-08 11:57] LABS: CALCIUM 9.6 mg/dL (8.5-10.1)
[2022-03-08 11:59] LABS: ALBUMIN 3.1 g/dl (3.4-5.0); CREATININE 0.9 mg/dL (0.55-1.3)
[2022-03-08 12:00] LABS: BILIRUBIN,TOTAL 1.5 mg/dL (0.2-1)
[2022-03-08 12:01] LABS: TOT PROT 7.5 g/dl (6.4-8.2)
[2022-03-08] MEDS ORDERED: MAGNESIUM 2GM/50ML STERILE WATER IVPB IVPB ONE (12:25)
[2022-03-08] MEDS ORDERED: MAGNESIUM SULF 50% (8.12 MEQ/2 ML-1 GM VIAL) IVPB ONE ×2 (15:14→20:00)
[2022-03-09 06:03] VITALS: RESP 18
[2022-03-09 09:26] VITALS: BP 91/68; PULSE 86; TEMP 98.6
[2022-03-09] MEDS: SPIRONOLACTONE 25 MG TABLET PO SCH (09:44)
[2022-03-09] MEDS: NADOLOL 20 MG TABLET (FP) PO SCH (09:45)
[2022-03-09] MEDS: FOLIC ACID 1 MG TABLET (FP) PO SCH (09:47)
[2022-03-09] MEDS: risperiDONE 1 MG TABLET PO SCH (09:47)
[2022-03-09] MEDS: LACTULOSE 20 GM/30 ML UDC (FOR ORAL USE ONLY) PO SCH (09:47)
[2022-03-09] MEDS: FUROSEMIDE 20 MG TABLET (FP) PO SCH (09:47)
[2022-03-09] MEDS: THIAMINE HCL 100 MG TABLET (FP) PO SCH (09:47)
[2022-03-09] MEDS ORDERED: MAGNESIUM OXIDE 400 MG TABLET (FP) PO SCH (10:00)
== END 2022-03-09 11:33 | disposition other institution (70) | DRG 280 ==
LOC: JER 19:33 → JERBED 03-03 00:47 → OBSVTOIN 03-03 02:10 → J6S 03-03 05:50 → J4W 03-03 19:21 → J6S 03-07 21:53
PROVIDERS: ADMIT Internal Medicine
DX: K70.30 Alcoholic cirrhosis of liver without ascites (principal); G92.8 Other toxic encephalopathy; K70.10 Alcoholic hepatitis without ascites; F10.239 Alcohol dependence with withdrawal, unspecified; R94.5 Abnormal results of liver function studies; E88.09 Other disorders of plasma-protein metabolism, not elsewhere classified; F12.90 Cannabis use, unspecified, uncomplicated; E03.9 Hypothyroidism, unspecified; F17.210 Nicotine dependence, cigarettes, uncomplicated; D69.59 Other secondary thrombocytopenia; R41.82 Altered mental status, unspecified; D72.829 Elevated white blood cell count, unspecified; N18.9 Chronic kidney disease, unspecified; K76.9 Liver disease, unspecified; E78.5 Hyperlipidemia, unspecified; E87.6 Hypokalemia; I10 Essential (primary) hypertension; I85.00 Esophageal varices without bleeding; N17.9 Acute kidney failure, unspecified; R44.3 Hallucinations, unspecified; R44.0 Auditory hallucinations; K72.90 Hepatic failure, unspecified without coma
CPT/HCPCS: 36415; 70450-TC; 71046-TC-FY; 76705-TC; 76775-TC; 80053; 80076; 80307; 81003; 82105; 82140; 82248; 82570; 82607; 82728; 82746; 83540; 83550; 83615; 83735; 84100; 84156; 84300; 84443; 84703; 85025; 85027; 85045; 85610; 85730; 86850; 86900; 86901; 87086; 93005; 93010; 97116-GP; 97161-GP; 99285-25; C9803-CS; G0378; J1644; J2794; U0003; U0005

== ENCOUNTER 2022-03-09 11:44 | Inpatient (IN) | payer OTHER ==
[2022-03-09 13:03] VITALS: BMI 20.4
[2022-03-09] MEDS ORDERED: MAG HYDROX/AL HYDROX/SIMETH 30 ML UNIT-DOSE CUP PO PRN (13:47)
[2022-03-09] MEDS ORDERED: NICOTINE 10 MG CARTRIDGE (INHALER) IH PRN (13:47)
[2022-03-09] MEDS ORDERED: MAGNESIUM HYDROX 2400MG/30ML ORAL SUSPENSION 30 ML CUP PO PRN (13:47)
[2022-03-09] MEDS ORDERED: P-EPHED 60MG/TRIPROLIDI 2.5MG TABLET PO PRN (13:47)
[2022-03-09] MEDS ORDERED: IBUPROFEN 400 MG TABLET (FP) PO PRN (13:47)
[2022-03-09] MEDS ORDERED: LOPERAMIDE HCL 2 MG CAPSULE PO PRN (13:47)
[2022-03-09] MEDS ORDERED: ACETAMINOPHEN 325 MG TABLET (FP) PO PRN (13:47)
[2022-03-09] MEDS ORDERED: guaiFENesin 200 MG/10 ML 10 ML UNIT-DOSE CUPS PO PRN (13:47)
[2022-03-09] MEDS ORDERED: MAGNESIUM CITRATE 300 ML BOTTLE PO PRN (13:47)
[2022-03-09 16:18] LABS: SYPHILIS W/ RPR CONF NON-REACTIVE (NONREACTIVE)
[2022-03-09] MEDS: hydrOXYzine PAMOATE 25 MG CAPSULE (FP) PO SCH ×3 (19:07→21:35)
[2022-03-09] MEDS ORDERED: TUBERCULIN PPD 5 TU/0.1ML VIAL ID ONE (19:19)
[2022-03-09] MEDS: PRENATAL VITAMINS W/ FOLIC ACID TABLET (FP) PO SCH (19:22)
[2022-03-09] MEDS: NICOTINE 7 MG/24 HOURS TOPICAL PATCH TD SCH (19:22)
[2022-03-09] MEDS: MELATONIN 5 MG TABLETS PO SCH (21:35)
[2022-03-09] MEDS: THIAMINE HCL 100 MG TABLET (FP) PO SCH (21:35)
[2022-03-09] MEDS: risperiDONE 1 MG TABLET PO SCH (21:37)
[2022-03-09] MEDS: LACTULOSE 20 GM/30 ML UDC (FOR ORAL USE ONLY) PO SCH (21:37)
[2022-03-09 22:18] LABS: EPI CELLS >36 /uL (0-25.1); HYALINE CASTS 4 /uL (0-3.1); URINE APPEARANCE CLOUDY; URINE BACTERIA 1701 /uL (0-1359); URINE BILIRUBIN NEGATIVE (NEGATIVE); URINE COLOR DK YELLOW; URINE GLUCOSE (UA) NEGATIVE (NEGATIVE); URINE KETONE TRACE (NEGATIVE); URINE LEUK ESTERASE 1+ (NEGATIVE); URINE NITRITE NEGATIVE (NEGATIVE); URINE PROTEIN NEGATIVE (NEGATIVE); URINE WBC 79 /uL (0-25.8)
[2022-03-10 00:16] LABS: URINE RBC 23 /uL (0-23.9)
[2022-03-10] MEDS: hydrOXYzine PAMOATE 25 MG CAPSULE (FP) PO SCH ×5 (06:20→21:41)
[2022-03-10] MEDS: LEVOTHYROXINE NA 25 MCG TABLET (FP) PO SCH (06:21)
[2022-03-10] MEDS: PRENATAL VITAMINS W/ FOLIC ACID TABLET (FP) PO SCH (10:18)
[2022-03-10] MEDS: LACTULOSE 20 GM/30 ML UDC (FOR ORAL USE ONLY) PO SCH ×2 (10:19→21:40)
[2022-03-10] MEDS: NICOTINE 7 MG/24 HOURS TOPICAL PATCH TD SCH (10:19)
[2022-03-10] MEDS: risperiDONE 1 MG TABLET PO SCH ×2 (10:19→21:41)
[2022-03-10] MEDS: SPIRONOLACTONE 25 MG TABLET PO SCH (10:20)
[2022-03-10] MEDS: FUROSEMIDE 20 MG TABLET (FP) PO SCH (10:20)
[2022-03-10] MEDS: NADOLOL 20 MG TABLET (FP) PO SCH (10:20)
[2022-03-10 17:41] LABS: PH,URINE 6.5 (5.0-8.0); URINE APPEARANCE CLEAR; URINE BILIRUBIN NEGATIVE (NEGATIVE); URINE COLOR YELLOW; URINE GLUCOSE (UA) NEGATIVE (NEGATIVE); URINE KETONE NEGATIVE (NEGATIVE); URINE LEUK ESTERASE NEGATIVE (NEGATIVE); URINE NITRITE NEGATIVE (NEGATIVE); URINE PROTEIN NEGATIVE (NEGATIVE); URINE UROBILINOGEN 0.2 mg/dL (0.2-1.0)
[2022-03-10] MEDS: MELATONIN 5 MG TABLETS PO SCH (21:41)
[2022-03-10] MEDS: THIAMINE HCL 100 MG TABLET (FP) PO SCH (21:41)
[2022-03-11] MEDS: LEVOTHYROXINE NA 25 MCG TABLET (FP) PO SCH (06:24)
[2022-03-11] MEDS: hydrOXYzine PAMOATE 25 MG CAPSULE (FP) PO SCH ×5 (06:24→21:28)
[2022-03-11 08:02] VITALS: RESP 16
[2022-03-11] MEDS: PRENATAL VITAMINS W/ FOLIC ACID TABLET (FP) PO SCH (10:28)
[2022-03-11] MEDS: risperiDONE 1 MG TABLET PO SCH ×2 (10:28→21:28)
[2022-03-11] MEDS: LACTULOSE 20 GM/30 ML UDC (FOR ORAL USE ONLY) PO SCH ×2 (10:28→21:28)
[2022-03-11] MEDS: FUROSEMIDE 20 MG TABLET (FP) PO SCH (10:28)
[2022-03-11] MEDS: SPIRONOLACTONE 25 MG TABLET PO SCH (10:29)
[2022-03-11] MEDS: NICOTINE 7 MG/24 HOURS TOPICAL PATCH TD SCH (10:29)
[2022-03-11] MEDS: NADOLOL 20 MG TABLET (FP) PO SCH (10:30)
[2022-03-11] MEDS: THIAMINE HCL 100 MG TABLET (FP) PO SCH (21:28)
[2022-03-11] MEDS: MELATONIN 5 MG TABLETS PO SCH (21:28)
[2022-03-12] MEDS: hydrOXYzine PAMOATE 25 MG CAPSULE (FP) PO SCH ×2 (06:14→10:39)
[2022-03-12] MEDS: LEVOTHYROXINE NA 25 MCG TABLET (FP) PO SCH (06:14)
[2022-03-12 07:25] VITALS: BP 110/79; PULSE 89; TEMP 97.7
[2022-03-12] MEDS: FUROSEMIDE 20 MG TABLET (FP) PO SCH (10:39)
[2022-03-12] MEDS: NADOLOL 20 MG TABLET (FP) PO SCH (10:39)
[2022-03-12] MEDS: risperiDONE 1 MG TABLET PO SCH (10:40)
[2022-03-12] MEDS: NICOTINE 7 MG/24 HOURS TOPICAL PATCH TD SCH (10:40)
[2022-03-12] MEDS: SPIRONOLACTONE 25 MG TABLET PO SCH (10:40)
[2022-03-12] MEDS: PRENATAL VITAMINS W/ FOLIC ACID TABLET (FP) PO SCH (10:40)
[2022-03-12] MEDS: LACTULOSE 20 GM/30 ML UDC (FOR ORAL USE ONLY) PO SCH (10:41)
== END 2022-03-12 12:00 | disposition left against medical advice (07) | DRG 770 ==
LOC: YASAS 11:44 → Y5N 16:56
PROVIDERS: ADMIT Allergy & Immunology; ATTEND Psychiatry & Neurology Pain Medicine
PROC: HZ42ZZZ Group Counseling for Substance Abuse Treatment, Cognitive-Behavioral (ICD-10-PCS; principal; 2022-03-09)
DX: F10.20 Alcohol dependence, uncomplicated (principal); F12.20 Cannabis dependence, uncomplicated; F19.282 Other psychoactive substance dependence with psychoactive substance-induced sleep disorder; F32.A Depression, unspecified; F41.9 Anxiety disorder, unspecified; E03.9 Hypothyroidism, unspecified; K70.30 Alcoholic cirrhosis of liver without ascites; R82.998 Other abnormal findings in urine; Z87.891 Personal history of nicotine dependence; Z86.79 Personal history of other diseases of the circulatory system
CPT/HCPCS: 36415; 81003; 86780; 86803; 87086; C9803-CS; J2794; U0003; U0005

== ENCOUNTER 2023-04-05 13:28 | Emergency (ER) | payer OTHER ==
[2023-04-05 13:39] VITALS: BP 102/64; PULSE 87; RESP 18; TEMP 99.3; BMI 21.7
[2023-04-05] MEDS ORDERED: SODIUM CHLORIDE 1,000 ML IV STA ×2 (14:28→18:36)
[2023-04-05] MEDS ORDERED: ACETAMINOPHEN 1000 MG/100 ML BAG IVPB ONE (14:29)
[2023-04-05] MEDS ORDERED: ACETAMINOPHEN INJECTION 100 ML IVPB ONE (15:04)
[2023-04-05 15:13] LABS: BASO % 1.5 % (0-2.0); EOS % 1.5 % (0-4.5); HEMATOCRIT 34.7 % (32.4-45.2); HEMOGLOBIN 11.3 GM/dL (10.7-15.3); MCH 29.6 pg (25.7-33.7); MCHC 32.5 g/dl (32.0-36.0); MEAN CELL VOLUME 91.3 fl (80-96); MEAN PLT VOLUME 10.1 fl (7.5-11.1); MONO % 12.6 % (3.8-10.2); NEUT % 69.4 % (42.8-82.8); PLATELET COUNT 126 10^3/uL (134-434); RDW 15.5 % (11.6-15.6); WHITE BLOOD COUNT 7.1 K/mm3 (4.0-10.0)
[2023-04-05] MEDS ORDERED: ONDANSETRON 4 MG/2 ML VIAL ONE (15:13)
[2023-04-05] MEDS ORDERED: ONDANSETRON 4 MG/2 ML VIAL IVPUSH ONE (15:13)
[2023-04-05 15:22] LABS: CHLORIDE 98 mmol/L (98-107); SODIUM 134 mmol/L (136-145)
[2023-04-05 15:25] LABS: ALBUMIN 3.3 g/dl (3.4-5.0); BLOOD UREA NITROGEN 12.9 mg/dL (7-18); CALCIUM 8.9 mg/dL (8.5-10.1); CO2 28 mmol/L (21-32); LIPASE 159 U/L (73-393)
[2023-04-05 15:26] LABS: GLUCOSE,RANDOM 102 mg/dL (74-106); MAGNESIUM 1.8 mg/dL (1.8-2.4)
[2023-04-05 15:28] LABS: SGOT/AST 165 U/L (15-37)
[2023-04-05 15:30] LABS: ALK PHOS 76 U/L (45-117); BILIRUBIN,TOTAL 1.4 mg/dL (0.2-1); TOT PROT 8.4 g/dl (6.4-8.2)
[2023-04-05 15:32] LABS: ANION GAP 8 MMOL/L (8-16); POTASSIUM 6.5 mmol/L (3.5-5.1); SGPT/ALT 61 U/L (13-61)
[2023-04-05 17:20] LABS: PH,URINE 7.5 (5.0-8.0); URINE APPEARANCE CLEAR; URINE BILIRUBIN NEGATIVE (NEGATIVE); URINE COLOR YELLOW; URINE GLUCOSE (UA) NEGATIVE (NEGATIVE); URINE KETONE NEGATIVE (NEGATIVE); URINE LEUK ESTERASE NEGATIVE (NEGATIVE); URINE NITRITE NEGATIVE (NEGATIVE); URINE PROTEIN NEGATIVE (NEGATIVE); URINE UROBILINOGEN 0.2 mg/dL (0.2-1.0)
[2023-04-05 17:51] LABS: POTASSIUM 3.6 mmol/L (3.5-5.1)
[2023-04-05 17:54] LABS: CALCIUM 8.5 mg/dL (8.5-10.1)
[2023-04-05 17:55] LABS: ALBUMIN 3.5 g/dl (3.4-5.0)
[2023-04-05 17:58] LABS: CREATININE 0.8 mg/dL (0.55-1.3)
[2023-04-05 17:59] LABS: TOT PROT 7.6 g/dl (6.4-8.2)
[2023-04-05 18:00] LABS: BILIRUBIN,TOTAL 1.4 mg/dL (0.2-1)
[2023-04-05] MEDS ORDERED: KETOROLAC TROMETHAMINE 30 MG/1 ML VIAL IVPUSH ONE ×2 (18:36→23:20)
[2023-04-05] MEDS ORDERED: KETOROLAC TROMETHAMINE 30 MG/1 ML VIAL ONE ×2 (18:38→23:25)
[2023-04-05] MEDS ORDERED: FAMOTIDINE 20 MG/50 ML IVPB 20 MG/50 ML MG IVPB ONE ×2 (23:20→23:25)
== END 2023-04-06 00:07 | disposition home or self-care (01) ==
LOC: JERFT 13:28
PROC: 3E033GC Introduction of Other Therapeutic Substance into Peripheral Vein, Percutaneous Approach (ICD-10-PCS; principal; 2023-04-05)
PROC: 3E033GC Introduction of Other Therapeutic Substance into Peripheral Vein, Percutaneous Approach (ICD-10-PCS; 2023-04-05)
PROC: 3E033GC Introduction of Other Therapeutic Substance into Peripheral Vein, Percutaneous Approach (ICD-10-PCS; 2023-04-05)
PROC: 3E033GC Introduction of Other Therapeutic Substance into Peripheral Vein, Percutaneous Approach (ICD-10-PCS; 2023-04-05)
PROC: 3E033NZ Introduction of Analgesics, Hypnotics, Sedatives into Peripheral Vein, Percutaneous Approach (ICD-10-PCS; 2023-04-05)
PROC: 3E0337Z Introduction of Electrolytic and Water Balance Substance into Peripheral Vein, Percutaneous Approach (ICD-10-PCS; 2023-04-05)
PROC: 3E0337Z Introduction of Electrolytic and Water Balance Substance into Peripheral Vein, Percutaneous Approach (ICD-10-PCS; 2023-04-05)
DX: M54.50 Low back pain, unspecified (principal); R10.32 Left lower quadrant pain; K52.9 Noninfective gastroenteritis and colitis, unspecified
CPT/HCPCS: 36415; 74177-TC; 76705-TC; 80053; 81003; 83690; 83735; 84703; 85025; 99285-25; Q9967

== ENCOUNTER 2024-01-04 00:15 | Emergency (ER) | payer OTHER ==
[2024-01-04 00:31] VITALS: BP 114/74; PULSE 80; RESP 18; TEMP 98.2; BMI 20.4
[2024-01-04] MEDS ORDERED: FLUORESCEIN NA 1 EA STRIP ONE (02:17)
[2024-01-04] MEDS ORDERED: TETRACAINE 0.5% OPHTH SOLN 2 ML BOTTLE ONE (02:18)
[2024-01-04] MEDS: TETRACAINE 0.5% HCL 0.6ML DROPPER.BOTTLE OD ONE (02:24)
[2024-01-04] MEDS: FLUORESCEIN NA 1 EA STRIP OD ONE (02:24)
== END 2024-01-04 03:05 | disposition home or self-care (01) ==
LOC: JER 00:15
DX: S05.01XA Injury of conjunctiva and corneal abrasion without foreign body, right eye, initial encounter (principal); W55.03XA Scratched by cat, initial encounter
CPT/HCPCS: 99283-25

== ENCOUNTER 2024-01-08 18:30 | Emergency (ER) | payer OTHER ==
[2024-01-08 18:40] VITALS: BP 121/86; PULSE 87; RESP 18; TEMP 98.7; BMI 44.9
== END 2024-01-08 20:01 | disposition home or self-care (01) ==
LOC: JERFT 18:30 → JER 18:30 → JERFT 20:01
DX: K03.81 Cracked tooth (principal)
CPT/HCPCS: 99283-25

== ENCOUNTER 2025-03-06 02:27 | Emergency (ER) | payer OTHER ==
[2025-03-06 03:02] VITALS: RESP 18; TEMP 98.5; BMI 21.7
[2025-03-06] MEDS ORDERED: KETOROLAC TROMETHAMINE 15 MG/ML VIAL ONE (03:09)
[2025-03-06] MEDS ORDERED: LIDOCAINE 4% PATCH TP ONE (03:09)
[2025-03-06] MEDS: KETOROLAC TROMETHAMINE 15 MG/ML VIAL IVPUSH ONE (03:10)
[2025-03-06] MEDS: LIDOCAINE 4% PATCH TP ONE (03:10)
[2025-03-06 03:26] LABS: ABSOLUTE IMMATURE GRANULOCYTES 0.01 x10^3/uL (0.0-0.031); BASOPHILS # 0.04 x10^3/uL (0.01-0.08); EOSINOPHIL % 0.3 % (0.7-5.8); EOSINOPHILS # 0.02 x10^3/uL (0.04-0.36); MCHC 33.0 g/dl (32.2-35.5); MEAN CELL VOLUME 87.6 fl (79.4-94.8); MEAN PLT VOLUME 11.8 fl (9.4-12.3); MONOCYTE # 0.44 x10^3/uL (0.24-0.86); MONOCYTE % 7.2 % (4.7-12.5); RDW 14.0 % (12.3-16.6)
[2025-03-06 03:46] LABS: CO2 31.0 mmol/L (21-32); GLUCOSE,RANDOM 131.0 mg/dL (74-106)
[2025-03-06 03:49] LABS: CREATININE 1.0 mg/dL (0.55-1.3); SGOT/AST 134.0 U/L (15-37); SGPT/ALT 58.0 U/L (13-61)
[2025-03-06 03:51] LABS: TOT PROT 8.0 g/dl (6.4-8.2)
[2025-03-06 03:52] LABS: ALK PHOS 137.0 U/L (45-117)
[2025-03-06] MEDS ORDERED: MAGNESIUM SULFATE IN WATER 2 GM/50 ML IVPB IVPB ONE ×2 (04:42→06:44)
[2025-03-06] MEDS: MAGNESIUM SULF 50% (8.12 MEQ/2 ML-1 GM VIAL) IVPB ONE (04:45)
[2025-03-06] MEDS: MAGNESIUM SULFATE IN WATER 2 GM/50 ML IVPB IVPB ONE (06:45)
[2025-03-06] MEDS ORDERED: ACETAMINOPHEN 500 MG TABLET (FP) ONE (06:52)
[2025-03-06] MEDS: ACETAMINOPHEN 325 MG TABLET (FP) PO ONE (06:54)
[2025-03-06] MEDS ORDERED: ACETAMINOPHEN 325 MG TABLET (FP) ONE (06:54)
[2025-03-06 06:58] VITALS: BP 114/92; PULSE 85
[2025-03-06] MEDS ORDERED: LIDOCAINE PATCH REMOVAL MC SCH (22:00)
[2025-03-07 18:20] LABS: HIV INTERPRETATION NEGATIVE (NEGATIVE)
[2025-03-09 02:41] LABS: HCV DIAGNOSTIC IN-HOUSE W/RFLX NON-REACTIVE (NONREACTIVE)
== END 2025-03-06 07:45 | disposition home or self-care (01) ==
LOC: JER 02:27
PROC: 3E033GC Introduction of Other Therapeutic Substance into Peripheral Vein, Percutaneous Approach (ICD-10-PCS; principal; 2025-03-06)
PROC: 3E033GC Introduction of Other Therapeutic Substance into Peripheral Vein, Percutaneous Approach (ICD-10-PCS; 2025-03-06)
PROC: 3E0333Z Introduction of Anti-inflammatory into Peripheral Vein, Percutaneous Approach (ICD-10-PCS; 2025-03-06)
DX: M25.511 Pain in right shoulder (principal); M54.2 Cervicalgia; M54.6 Pain in thoracic spine
CPT/HCPCS: 36415; 71045-TC-FY; 80053; 83735; 84484; 85025; 86803; 87389; 93005; 93010; 99285-25